=== PATIENT | male | born 1965 ===

== ENCOUNTER 2018-05-02 12:57 | Observation (INO) | payer OTHER ==
[2018-05-02] MEDS ORDERED: DiphenhydrAMINE 50 mg/ml Inj IVP STA (14:28)
--- NOTE | 2018-05-02 14:29 | C.PDOC ---
History Of Present Illness 52 y/o male presents to ED sent by Dr. Godinez for evaluation of headache, ear pain, chest pressure pain, tingling to lips and vomiting for 4 days. Patient states he went to see Dr. Godinez for symptoms and blood pressure was high, instruc dede to come to ED for further evaluation. Patient denies head trauma, loc, dizziness or any other complaints at this time. Time Seen by Provider: 05/02/18 14:18 Chief Complaint (Nursing): Headache History Per: Patient History/Exam Limitations: no limitations Onset/Duration Of Symptoms: Days Current Symptoms Are (Timing): Still Present Past Medical History Reviewed: Historical Data, Nursing Documentation, Vital Signs Vital Signs: Last Vital Signs Temp 97.7 F 05/02/18 13:05 Pulse 58 L 05/02/18 14:44 Resp 18 05/02/18 13:05 BP 120/86 05/02/18 14:44 Pulse Ox 95 05/02/18 14:36 - Medical History PMH: Hypercholesterolemia Surgical History: No Surg Hx Family History: States: No Known Family Hx - Social History Hx Alcohol Use: Yes Hx Substance Use: No - Immunization History Hx Tetanus Toxoid Vaccination: No Hx Influenza Vaccination: No Hx Pneumococcal Vaccination: No Review Of Systems Except As Marked, All Systems Reviewed And Found Negative. ENT: Positive for: Ear Pain Cardiovascular: Positive for: Chest Pain Gastrointestinal: Positive for: Vomiting Neurological: Positive for: Headache Physical Exam - Physical Exam Appears: Non-toxic, No Acute Distress Skin: Warm, Dry, No Rash Head: Atraumatic, Normacephalic Eye(s): bilateral: Normal Inspection Ear(s): Bilateral: Normal Oral Mucosa: Moist Neck: Supple Cardiovascular: Rhythm Regular Respiratory: Normal Breath Sounds, No Rales, No Rhonchi, No Wheezing Gastrointestinal/Abdominal: Soft, No Tenderness, No Guarding, No Rebound Neurological/Psych: Oriented x3, Normal Speech, Normal Cognition ED Course And Treatment - Laboratory Results Result Diagrams: 05/02/18 15:07 05/02/18 15:07 O2 Sat by Pulse Oximetry: 95 (RA) Pulse Ox Interpretation: Normal Medical Decision Making Medical Decision Making: Assessment: CP, Headache Disposition Discussed With DrEsther: Nelson Godinez Jr. Doctor Will See Patient In The: Hospital Counseled Patient/Family Regarding: Studies Performed, Diagnosis - Disposition Disposition: HOSPITALIZED Disposition Time: 15:49 Condition: FAIR Forms: [facility] (Greenlandic) - Clinical Impression Clinical Impression: Chest pain, Headache - Scribe Statement The provider has reviewed the documentation as recorded by the Rufusibamy Carlson All medical record entries made by the Rufusibe were at my direction and personally dictated by me. I have reviewed the chart and agree that the record accurately reflects my personal performance of the history, physical exam, medical decision making, and the department course for this patient. I have also personally directed, reviewed, and agree with the discharge instructions and disposition.
[2018-05-02 15:11] LABS: BASO # 0.1 K/uL (0.0-0.2); BASO % 1.2 % (0.0-2.0); EOS # 0.1 K/uL (0.0-0.7); EOS % 1.8 % (0.0-4.0); HEMOGLOBIN 15.8 g/dL (12.0-18.0); LYMPH # 2.8 K/uL (1.0-4.3); LYMPH % 56.9 % (20.0-40.0); MEAN CORPUSCULAR HEMOGLOBIN 32.2 pg (27.0-31.0); MEAN PLATELET VOLUME 7.7 fL (7.2-11.7); MONO # 0.3 K/uL (0.0-0.8); MONO % 7.1 % (0.0-10.0); NEUT # 1.6 K/uL (1.8-7.0); NRBC % 0.1 % (0.0-2.0); RBC 4.9 Mil/uL (4.40-5.90); RED CELL DISTRIBUTION WIDTH 12.6 % (11.5-14.5); WHITE BLOOD COUNT 4.9 K/uL (4.8-10.8)
[2018-05-02] MEDS ORDERED: DiphenhydrAMINE 50 mg/ml Inj ONE (15:11)
[2018-05-02 15:27] LABS: ALB/GLOB RATIO 1.3 (1.0-2.1); ALBUMIN 4.4 g/dL (3.5-5.0); ALT/SGPT 44 U/L (21-72); AST/SGOT 38 U/L (17-59); BLOOD UREA NITROGEN 17 mg/dL (9-20); CALCIUM 10.2 mg/dl (8.6-10.4); GFR NON-AFRICAN AMERICAN > 60; LIPASE 45 U/L (23-300)
[2018-05-02 15:29] LABS: URINE BACTERIA RARE (<OCC); URINE BILIRUBIN NEGATIVE (NEGATIVE); URINE BLOOD NEGATIVE (NEGATIVE); URINE CLARITY Clear (Clear); URINE COLOR Yellow (YELLOW); URINE GLUCOSE (UA) NORMAL (Normal); URINE LEUKOCYTE ESTERASE NEG Leu/uL (Negative); URINE PROTEIN NEGATIVE (NEGATIVE); URINE UROBILINOGEN NORMAL mg/dL (0.2-1.0)
--- NOTE | 2018-05-02 15:33 | RAD ---
Date of service: 05/02/2018 PROCEDURE: CHEST RADIOGRAPH, 1 VIEW HISTORY: SOB COMPARISON: None available. FINDINGS: LUNGS: No consolidation. Tiny granulomas left mid lung zone possible. Comparison with prior chest [id number] if available, recommended. PLEURA: No pneumothorax or pleural fluid seen. CARDIOVASCULAR: Evaluation of heart size limited due to the apical lordotic and portable technique. No patito pulmonary venous congestion appreciated. OSSEOUS STRUCTURES: No significant abnormalities. VISUALIZED UPPER ABDOMEN: Normal. OTHER FINDINGS: None. IMPRESSION: No acute cardiopulmonary pathology appreciated.
--- NOTE | 2018-05-02 15:33 | CT ---
Date of service: 05/02/2018 PROCEDURE: CT HEAD WITHOUT CONTRAST. HISTORY: headache COMPARISON: None available. TECHNIQUE: Axial computed tomography images were obtained through the head/brain without intravenous contrast. Supplemental Coronal and Sagittal projectections created and reviewed. Radiation dose: Total exam DLP = 1175.00 mGy-cm. This CT exam was performed using one or more of the following dose reduction techniques: Automated exposure control, adjustment of the mA and/or kV according to patient size, and/or use of iterative reconstruction technique. FINDINGS: HEMORRHAGE: No intracranial hemorrhage. BRAIN: No mass effect or edema. No atrophy or chronic microvascular ischemic changes. VENTRICLES: Unremarkable. No hydrocephalus. CALVARIUM: Unremarkable. PARANASAL SINUSES: Unremarkable as visualized. No significant inflammatory changes. MASTOID AIR CELLS: Unremarkable as visualized. No inflammatory changes. OTHER FINDINGS: None. IMPRESSION: No acute intracranial abnormalities. No significant findings to account for the clinical presentation.
[2018-05-02 15:38] LABS: B-TYPE NATRIURETIC PEPTIDE 12.6 pg/mL (0-900)
[2018-05-02 15:50] LABS: BARBITURATES, UR NEGATIVE (NEGATIVE); BENZODIAZEPINES, UR NEGATIVE (NEGATIVE); OPIATES, UR NEGATIVE (NEGATIVE); PHENCYCLIDINE, UR NEGATIVE (NEGATIVE)
--- NOTE | 2018-05-02 18:23 | CP.PCM.HP ---
History of Present Illness - History of Present Illness History of Present Illness: Abram Cole PGY-1, H&P for Dr. Godinez CC: headache This is a 52 year old Somali-speaking male with PMH of pre-DM, hypertriglycerid emia, GERD, constipation who was sent to the ED due to hypertensive urgency (SBP 180s in the office). Translation is provided by pt's , Constance, who is at bedside. Pt complains of intermittent frontal and occipital headache for the past 5 days, associated with a dull pressure in the chest. Headache is nonradiating, not associated with visual changes, but he has been feeling dizzy intermittently and had 1 episode of vomiting (containing food) yesterday which was nonbilious nonbloody. Pt states that the chest pain is nonradiating, not pleuritic in nature, but associated with SOB at times which is worse on exertion. Pt endorses numbness and tingling of the tongue today. Pt denies focal weakness, fever, chills, abdominal pain, n/d, leg swelling or pain, GERD symptoms, dysuria, history of similar symptoms. A 12-point ROS was reviewed and is otherwise unremarkable. Pt seen and examined at bedside. Pt is resting comfortably, and denies any symptoms at this time. PMD: Dr. Gretchen Navarro: Dr. Newman PMH: pre-diabetes, hypertriglyceridemia, GERD, constipation PSH: denies Meds: Metformin 500 mg BID, Omeprazole 40 mg daily, ASA 81 mg PO daily, Fenofibrate 160 mg PO daily Allx:None FHx: IDDM in mother. Father diagnosed, and , from stomach cancer at age 78. No other family history of cancers. Social Hx: Born in [place] (immigrated about 20 years ago), Pt works in [employer]. (+) etoh socially, (+) smoking 1 cig per day for the past few years, (- ) illicit drug use. Present on Admission - Present on Admission Any Indicators Present on Admission: No Review of Systems - Review of Systems All systems: reviewed and no additional remarkable complaints except (as per HPI) Past Patient History - Past Medical History & Family History Past Medical History?: No - Past Social History Smoking Status: Light Smoker < 10 Cigarettes Daily - CARDIAC Hx Hypercholesterolemia: Yes - ENDOCRINE/METABOLIC Hx Diabetes Mellitus Type 2: Yes - PSYCHIATRIC Hx Substance Use: No - SURGICAL HISTORY Hx Surgeries: No - ANESTHESIA Hx Anesthesia: No Meds Allergies/Adverse Reactions: Allergies Allergy/AdvReac Type Severity Reaction Status Date / Time No Known Allergies Allergy Verified 09/06/16 10:32 Physical Exam - Constitutional Appears: Non-toxic, No Acute Distress - Head Exam Head Exam: ATRAUMATIC, NORMAL INSPECTION - Eye Exam Eye Exam: EOMI, Normal appearance - ENT Exam ENT Exam: Mucous Membranes Moist - Neck Exam Neck exam: Positive for: Normal Inspection - Respiratory Exam Respiratory Exam: Rales (scant rales at the bases bilaterally), NORMAL BREATHING PATTERN. absent: Rhonchi, Wheezes, Respiratory Distress - Cardiovascular Exam Cardiovascular Exam: Bradycardia, +S1, +S2 - GI/Abdominal Exam GI & Abdominal Exam: Distended, Normal Bowel Sounds, Soft. absent: Firm, Guarding, Hernia, Rebound, Rigid - Extremities Exam Extremities exam: Positive for: normal capillary refill, normal inspection, pedal pulses present. Negative for: calf tenderness, pedal edema, tenderness - Back Exam Back exam: NORMAL INSPECTION - Neurological Exam Neurological exam: Alert, CN II-XII Intact, Oriented x3 Additional comments: (+) 5/5 strength in bilateral upper and lower extremities - Psychiatric Exam Psychiatric exam: Normal Affect, Normal Mood - Skin Skin Exam: Dry, Normal Color, Warm Results - Vital Signs Recent Vital Signs: Last Vital Signs Temp 98.1 F 05/02/18 18:06 Pulse 62 05/02/18 18:06 Resp 18 05/02/18 18:06 BP 127/80 05/02/18 18:06 Pulse Ox 95 05/02/18 18:06 - Labs Result Diagrams: 05/02/18 15:07 05/02/18 15:07 Labs: Laboratory Results - last 24 hr 05/02/18 05/02/18 05/02/18 13:03 15:07 15:07 WBC 4.9 RBC 4.90 Hgb 15.8 Hct 45.0 MCV 92.0 MCH 32.2 H MCHC 35.0 RDW 12.6 Plt Count 287 MPV 7.7 Neut % (Auto) 33.0 L Lymph % (Auto) 56.9 H [place] % (Auto) 7.1 Eos % (Auto) 1.8 Baso % (Auto) 1.2 Neut # (Auto) 1.6 L Lymph # (Auto) 2.8 [place] # (Auto) 0.3 Eos # (Auto) 0.1 Baso # (Auto) 0.1 Sodium 140 Potassium 4.3 Chloride 101 Carbon Dioxide 28 Anion Gap 15 BUN 17 Creatinine 0.8 Est GFR ( Amer) > 60 Est GFR (Non-Af Amer) > 60 POC Glucose (mg/dL) 93 Random Glucose 101 Calcium 10.2 Magnesium 2.0 Total Bilirubin 0.6 AST 38 ALT 44 Alkaline Phosphatase 48 Troponin I < 0.0120 NT-Pro-B Natriuret Pep 12.6 Total Protein 7.8 Albumin 4.4 Globulin 3.4 Albumin/Globulin Ratio 1.3 Lipase 45 TSH 3rd Generation 1.59 Urine Color Urine Clarity Urine pH Ur Specific [place] Urine Protein Urine Glucose (UA) Urine Ketones Urine Blood Urine Nitrate Urine Bilirubin Urine Urobilinogen Ur Leukocyte Esterase Urine WBC (Auto) Urine RBC (Auto) Urine Bacteria Urine Opiates Screen Urine Methadone Screen Ur Barbiturates Screen Ur Phencyclidine Scrn Ur Amphetamines Screen U Benzodiazepines Scrn U Oth Cocaine Metabols U Cannabinoids Screen 05/02/18 05/02/18 15:23 15:23 WBC RBC Hgb Hct MCV MCH MCHC RDW Plt Count MPV Neut % (Auto) Lymph % (Auto) [place] % (Auto) Eos % (Auto) Baso % (Auto) Neut # (Auto) Lymph # (Auto) [place] # (Auto) Eos # (Auto) Baso # (Auto) Sodium Potassium Chloride Carbon Dioxide Anion Gap BUN Creatinine Est GFR ( Amer) Est GFR (Non-Af Amer) POC Glucose (mg/dL) Random Glucose Calcium Magnesium Total Bilirubin AST ALT Alkaline Phosphatase Troponin I NT-Pro-B Natriuret Pep Total Protein Albumin Globulin Albumin/Globulin Ratio Lipase TSH 3rd Generation Urine Color Yellow Urine Clarity Clear Urine pH 6.0 Ur Specific [place] 1.028 Urine Protein Negative Urine Glucose (UA) Normal Urine Ketones Negative Urine Blood Negative Urine Nitrate Negative Urine Bilirubin Negative Urine Urobilinogen Normal Ur Leukocyte Esterase Neg Urine WBC (Auto) 1 Urine RBC (Auto) 4 H Urine Bacteria Rare Urine Opiates Screen Negative Urine Methadone Screen Negative Ur Barbiturates Screen Negative Ur Phencyclidine Scrn Negative Ur Amphetamines Screen Negative U Benzodiazepines Scrn Negative U Oth Cocaine Metabols Negative U Cannabinoids Screen Negative Assessment & Plan - Assessment and Plan (Free Text) Assessment: This is a 52 year old Somali-speaking male with PMH of pre-DM, hypertriglyceridemia, GERD, constipation who presents with intermittent headache, chest pain and shortness of breath for the past 5 days. Plan: Atypical chest pain, r/o ACS - pt has multiple risk factors for cardiovascular disease; smoking, hypertriglyceridemia, obesity, pre-diabetes - EKG shows SB at 56 - troponin x 1 is negative; will obtain PATTY panel x2 q6h - BNP was wnl on admission - CXR was read as no acute cardiopulmonary pathology - continue home ASA 81 mg PO daily - O2 via NC prn - f/u echocardiogram - Cardiology, Dr. Miranda, consulted, recs appreciated Headache; likely due to hypertension - Head CT was read as no acute intracranial abnormalities - pt is currently symptomatic and hypertension has not been noted during this admission - will hold off on BP medications at this time - Tylenol 650 mg PO Q6h PRN headache Hx of hypertriglyceridemia - Fenofibrate 145 mg PO QPM Pre-diabetes - will hold home metformin, in anticipation of possible intervention from cardiology Hx of GERD - protonix 40 mg PO daily PPD/Diet - protonix for GI, SCDs and Heparin 5,000 units Q12 for VTE - HHD All medical management as per Dr. Gretchen Cole PGY-1
--- NOTE | 2018-05-02 20:27 | CP.PCM.CON ---
History of Present Illness - History of Present Illness History of Present Illness: I was asked to evaluate patient by Dr Godinez. Patient is a 52 year old male with hypertiglyceridemia who presents with headache and hypertensive urgency. The patient states one week ago he developed headache and assocaited pressure in his chest. He states symptoms occurred at rest, along with associated dsypnea. The patient states he was found to have a systolic pressure greater than 180. He was admitted for further management. Review of Systems - Constitutional Constitutional: absent: As Per HPI, Anorexia, Chills, Daytime Sleepiness, Excessive Sweating, Fatigue, Fever, Frequent Falls, Headache, Increased Appetite, Lethargy, Malaise, Night Sweats, Snoring, Sleep Apnea, Weight Gain, Weight Loss, Weakness, Other - EENT Eyes: absent: As Per HPI, Blind Spots, Blurred Vision, Change in Vision, Decreased Night Vision, Diplopia, Discharge, Dry Eye, Exophthalmos, Floaters, Irritation, Itchy Eyes, Loss of Peripheral Vision, Pain, Photophobia, Requires Corrective Lenses, Sees Flashes, Spots in Vision, Tunnel Vision, Other Visual Disturbances, Loss of Vision, Other Ears: absent: As Per HPI, Decreased Hearing, Ear Discharge, Ear Pain, Tinnitus, Abnormal Hearing, Disequilibrium, Dizziness, Other Nose/Mouth/Throat: absent: As Per HPI, Epistaxis, Nasal Congestion, Nasal D ischarge, Nasal Obstruction, Nasal Trauma, Nose Pain, Post Nasal Drip, Sinus Pain, Sinus Pressure, Bleeding Gums, Change in Voice, Dental Pain, Dry Mouth, Dysphagia, Halitosis, Hoarsness, Lip Swelling, Mouth Lesions, Mouth Pain, Odynophagia, Sore Throat, Throat Swelling, Tongue Swelling, Facial Pain, Neck Pain, Neck Mass, Other - Cardiovascular Cardiovascular: Chest Pain - Respiratory Respiratory: absent: As Per HPI, Cough, Dyspnea, Hemoptysis, Dyspnea on Exertion, Wheezing, Snoring, Stridor, Pain on Inspiration, Chest Congestion, Excessive Mucous Production, Change in Mucous Color, Pain with Coughing, Other - Gastrointestinal Gastrointestinal: absent: As Per HPI, Abdominal Pain, Belching, Bloating, Change in Bowel Habits, Change in Stool Character, Coffee Ground Emesis, Constipation, Cramping, Diarrhea, Dyspepsia, Dysphagia, Early Satiety, Excessive Flatus, Fecal Incontinence, Heartburn, Hematemesis, Hematochezia, Loose Stools, Melena, Nausea, Odynophagia, Temesmus, Vomiting, Other - Genitourinary Genitourinary: absent: As Per HPI, Change in Urinary Stream, Difficulty Urinating, Dysuria, Flank Pain, Hematuria, Pyuria, Nocturia, Urinary Incontinence, Urinary Frequency, Urinary Hesitance, Urinary Urgency, Voiding Freq/Small Amts, Freq UTI, Hx Renal/Bladder Calculi, Hx /Renal Surgery, Bladder Distension, Other - Musculoskeletal Musculoskeletal: absent: As Per HPI, Abnormal Gait, Arthralgias, Atrophy, Back Pain, Deformity, Joint Swelling, Limited Range of Motion, Loss of Height, Muscle Cramps, Muscle Weakness, Myalgias, Neck Pain, Numbness, Radiating Pain into Limb, Stiffness, Tingling, Other - Integumentary Integumentary: absent: As Per HPI, Acne, Alopecia, Bleeding Lesions, Change in Hair, Change in Nails, Change in Pigmentation, Changing Lesions, Dry Skin, Erythema, Furuncle, Hirsutism, Lesions, New Lesions, Non-Healing Lesions, Panfilo tosensitivity, Pruritus, Rash, Skin Pain, Skin Ulcer, Sores, Striae, Swelling, Unusual Bruising, Wounds, Jaundice, Other - Neurological Neurological: absent: As Per HPI, Abnormal Gait, Abnormal Hearing, Abnormal Movements, Abnormal Speech, Behavioral Changes, Burning Sensations, Confusion, Convulsions, Disequilibrium, Dizziness, Numbness, Focal Weakness, Frequent Falls, Headaches, Lack of Coordination, Loss of Vision, Memory Loss, Paresthesias, Radicular Pain, Restless Legs, Sensory Deficit, Syncope, Tingling, Tremor, Vertigo, Weakness, Other Visual Disturbances, Other - Psychiatric Psychiatric: absent: As Per HPI, Abnormal Sleep Pattern, Anhedonia, Anxiety, Auditory Hallucinations, Behavioral Changes, Change in Appetite, Change in Libido, Confusion, Depression, Difficulty Concentrating, Hallucinations, Homicid al Ideation, Hopelessness, Irritability, Memory Loss, Mood Swings, Panic Attacks, Paranoia, Suicidal Ideation, Visual Hallucinations, Tactile Hallucinations, Other - Endocrine Endocrine: absent: As Per HPI, Change in Body Appearance, Change in Libido, Cold Intolorance, Deepening of Voice, Excessive Sweating, Fatigue, Flushing, Heat Intolorance, Increase in Ring/Shoe/Hat Size, Palpitations, Polydipsia, Polyphagia, Polyuria, Other - Hematologic/Lymphatic Hematologic: absent: As Per HPI, Easy Bleeding, Easy Bruising, Lymphadenopathy, Other Past Patient History - Past Medical History & Family History Past Medical History?: No - Past Social History Smoking Status: Light Smoker < 10 Cigarettes Daily - CARDIAC Hx Hypercholesterolemia: Yes - ENDOCRINE/METABOLIC Hx Diabetes Mellitus Type 2: Yes - PSYCHIATRIC Hx Substance Use: No - SURGICAL HISTORY Hx Surgeries: No - ANESTHESIA Hx Anesthesia: No Meds Allergies/Adverse Reactions: Allergies Allergy/AdvReac Type Severity Reaction Status Date / Time No Known Allergies Allergy Verified 09/06/16 10:32 - Medications Medications: Current Medications Acetaminophen (Tylenol 325mg Tab) 650 mg PO Q6 PRN PRN Reason: Headache Aspirin (Ecotrin) 81 mg PO DAILY KEVIN Fenofibrate (Tricor) 145 mg PO QPM KEVIN Last Admin: 05/02/18 18:56 Dose: 145 mg Heparin Sodium (Porcine) (Heparin) 5,000 units SC Q12 KEVIN Pantoprazole Sodium (Protonix Ec Tab) 40 mg PO DAILY [facility] Pneumococcal Polyvalent Vaccine (Pneumovax 23 Vaccine) 0.5 ml IM .ONCE ONE Stop: 05/03/18 10:01 Physical Exam - Constitutional Appears: Non-toxic - Head Exam Head Exam: NORMAL INSPECTION - Eye Exam Eye Exam: Normal appearance - ENT Exam ENT Exam: Mucous Membranes Moist - Neck Exam Neck exam: Positive for: Full Rom - Respiratory Exam Respiratory Exam: NORMAL BREATHING PATTERN - Cardiovascular Exam Cardiovascular Exam: REGULAR RHYTHM - GI/Abdominal Exam GI & Abdominal Exam: Normal Bowel Sounds - Rectal Exam Rectal Exam: Deferred - Extremities Exam Extremities exam: Positive for: pedal edema - Back Exam Back exam: NORMAL INSPECTION - Neurological Exam Neurological exam: Alert, Oriented x3 - Psychiatric Exam Psychiatric exam: Normal Affect - Skin Skin Exam: Normal Color Results - Vital Signs Recent Vital Signs: Last Vital Signs Temp 98.7 F 05/02/18 19:50 Pulse 62 05/02/18 18:06 Resp 18 05/02/18 18:06 BP 127/80 05/02/18 18:06 Pulse Ox 95 05/02/18 18:06 - Labs Result Diagrams: 05/02/18 15:07 05/02/18 15:07 Labs: Laboratory Results - last 24 hr 05/02/18 05/02/18 05/02/18 13:03 15:07 15:07 WBC 4.9 RBC 4.90 Hgb 15.8 Hct 45.0 MCV 92.0 MCH 32.2 H MCHC 35.0 RDW 12.6 Plt Count 287 MPV 7.7 Neut % (Auto) 33.0 L Lymph % (Auto) 56.9 H [place] % (Auto) 7.1 Eos % (Auto) 1.8 Baso % (Auto) 1.2 Neut # (Auto) 1.6 L Lymph # (Auto) 2.8 [place] # (Auto) 0.3 Eos # (Auto) 0.1 Baso # (Auto) 0.1 Sodium 140 Potassium 4.3 Chloride 101 Carbon Dioxide 28 Anion Gap 15 BUN 17 Creatinine 0.8 Est GFR ( Amer) > 60 Est GFR (Non-Af Amer) > 60 POC Glucose (mg/dL) 93 Random Glucose 101 Calcium 10.2 Magnesium 2.0 Total Bilirubin 0.6 AST 38 ALT 44 Alkaline Phosphatase 48 Troponin I < 0.0120 NT-Pro-B Natriuret Pep 12.6 Total Protein 7.8 Albumin 4.4 Globulin 3.4 Albumin/Globulin Ratio 1.3 Lipase 45 TSH 3rd Generation 1.59 Urine Color Urine Clarity Urine pH Ur Specific [place] Urine Protein Urine Glucose (UA) Urine Ketones Urine Blood Urine Nitrate Urine Bilirubin Urine Urobilinogen Ur Leukocyte Esterase Urine WBC (Auto) Urine RBC (Auto) Urine Bacteria Urine Opiates Screen Urine Methadone Screen Ur Barbiturates Screen Ur Phencyclidine Scrn Ur Amphetamines Screen U Benzodiazepines Scrn U Oth Cocaine Metabols U Cannabinoids Screen 05/02/18 05/02/18 15:23 15:23 WBC RBC Hgb Hct MCV MCH MCHC RDW Plt Count MPV Neut % (Auto) Lymph % (Auto) [place] % (Auto) Eos % (Auto) Baso % (Auto) Neut # (Auto) Lymph # (Auto) [place] # (Auto) Eos # (Auto) Baso # (Auto) Sodium Potassium Chloride Carbon Dioxide Anion Gap BUN Creatinine Est GFR ( Amer) Est GFR (Non-Af Amer) POC Glucose (mg/dL) Random Glucose Calcium Magnesium Total Bilirubin AST ALT Alkaline Phosphatase Troponin I NT-Pro-B Natriuret Pep Total Protein Albumin Globulin Albumin/Globulin Ratio Lipase TSH 3rd Generation Urine Color Yellow Urine Clarity Clear Urine pH 6.0 Ur Specific [place] 1.028 Urine Protein Negative Urine Glucose (UA) Normal Urine Ketones Negative Urine Blood Negative Urine Nitrate Negative Urine Bilirubin Negative Urine Urobilinogen Normal Ur Leukocyte Esterase Neg Urine WBC (Auto) 1 Urine RBC (Auto) 4 H Urine Bacteria Rare Urine Opiates Screen Negative Urine Methadone Screen Negative Ur Barbiturates Screen Negative Ur Phencyclidine Scrn Negative Ur Amphetamines Screen Negative U Benzodiazepines Scrn Negative U Oth Cocaine Metabols Negative U Cannabinoids Screen Negative - EKG Data EKG Interpreted by: Myself EKG shows normal: Sinus rhythm Assessment & Plan (1) Chest pain Assessment and Plan: patient has no active chest pain. recommend cardaic enzymes x 3. If negative patient can be discharged home and will schedule outpatient stress test Status: Acute (2) HTN (hypertension) Assessment and Plan: blood pressure control Status: Acute
[2018-05-02 21:22] LABS: CK-MB 5.04 ng/mL (0.0-3.38)
[2018-05-03 00:44] VITALS: RESP 20
[2018-05-03 03:35] LABS: EOS # 0.1 K/uL (0.0-0.7); EOS % 2.6 % (0.0-4.0); HEMOGLOBIN 15.2 g/dL (12.0-18.0); LYMPH # 3.1 K/uL (1.0-4.3); LYMPH % 66.6 % (20.0-40.0); MEAN CELL VOLUME 91.8 fL (80.0-94.0); MEAN CORPUSCULAR HEMOGLOBIN 32.5 pg (27.0-31.0); MEAN CORPUSCULAR HGB CONC 35.4 g/dL (33.0-37.0); MEAN PLATELET VOLUME 8.1 fL (7.2-11.7); MONO # 0.3 K/uL (0.0-0.8); MONO % 7.4 % (0.0-10.0); NEUT % 22.4 % (50.0-75.0); NRBC % 0.1 % (0.0-2.0); RBC 4.68 Mil/uL (4.40-5.90); RED CELL DISTRIBUTION WIDTH 12.5 % (11.5-14.5); WHITE BLOOD COUNT 4.6 K/uL (4.8-10.8)
[2018-05-03 03:58] LABS: ALB/GLOB RATIO 1.4 (1.0-2.1); ALT/SGPT 41 U/L (21-72); AST/SGOT 32 U/L (17-59); BLOOD UREA NITROGEN 19 mg/dL (9-20); CALCIUM 9.6 mg/dl (8.6-10.4); GFR NON-AFRICAN AMERICAN > 60
[2018-05-03 04:09] LABS: CK-MB 4.99 ng/mL (0.0-3.38)
--- NOTE | 2018-05-03 07:25 | CP.PCM.PN ---
Subjective - Date & Time of Evaluation Date of Evaluation: 05/03/18 Time of Evaluation: 07:25 - Subjective Subjective: Abram Cole PGY-1, Medicine progress note for Dr. Godinez Objective - Vital Signs/Intake and Output Vital Signs (last 24 hours): Temp Pulse Resp BP Pulse Ox 97.7 F 59 L 20 128/70 96 05/03/18 00:00 05/03/18 03:05 05/03/18 00:00 05/03/18 00:00 05/03/18 00:00 - Medications Medications: Current Medications Acetaminophen (Tylenol 325mg Tab) 650 mg PO Q6 PRN PRN Reason: Headache Aspirin (Ecotrin) 81 mg PO DAILY KEVIN Fenofibrate (Tricor) 145 mg PO QPM [facility] Last Admin: 05/02/18 18:56 Dose: 145 mg Heparin Sodium (Porcine) (Heparin) 5,000 units SC Q12 [facility] Last Admin: 05/02/18 21:18 Dose: 5,000 units Pantoprazole Sodium (Protonix Ec Tab) 40 mg PO DAILY [facility] Pneumococcal Polyvalent Vaccine (Pneumovax 23 Vaccine) 0.5 ml IM .ONCE ONE Stop: 05/03/18 10:01 - Labs Labs: 05/03/18 03:30 05/03/18 03:30 APTT 36 SECONDS (21-34) H 05/03/18 03:30
[2018-05-03 08:09] VITALS: PULSE 63
[2018-05-03] MEDS ORDERED: Pneumococcal 23-Valent Vaccine IM ONE (10:00)
[2018-05-03] MEDS ORDERED: Pantoprazole 40 mg EC Tab PO SCH (10:00)
--- NOTE | 2018-05-03 11:51 | CARD ---
APPROVED REPORT Date of service: 05/02/2018 EKG Measurement Heart [id number] <Conclusion> Sinus bradycardia Inferior infarct, age undetermined Abnormal ECG
--- NOTE | 2018-05-03 12:30 | CARD ---
APPROVED REPORT Date of service: 05/03/2018 EXAM: Two-dimensional and M-mode echocardiogram with Doppler and color Doppler. Other Information Quality : GoodRhythm : INDICATION Chest Pain RISK FACTORS Hypertension Hyperlipidemia Diabetes 2D DIMENSIONS IVSd1.8 (0.7-1.1cm)LVDd4.6 (3.9-5.9cm) PWd1.6 (0.7-1.1cm)LVDs2.8 (2.5-4.0cm) FS (%) 39.7 %LVEF (%)70.3 (>50%) M-Mode DIMENSIONS RVDd1.25 (2.1-3.2cm)Left Atrium (MM)4.09 (2.5-4.0cm) IVSd1.66 (0.7-1.1cm)Aortic Root3.44 (2.2-3.7cm) LVDd4.83 (4.0-5.6cm)Aortic Cusp Exc.2.59 (1.5-2.0cm) PWd1.48 (0.7-1.1cm)FS (%) 43 % LVDs2.77 (2.0-3.8cm)TAPSE14.01 cm LVEF (%)74 (>50%) Mitral Valve MV E Lqjbjcfv72.7cm/sMV A Czdcehwd28.2cm/sE/A ratio1.3 TDI E/Lateral E'0.0E/Medial E'0.0 Tricuspid Valve TR Peak Rjsrzojw222yf/sTR Peak Gr.[id number] LEFT VENTRICLE The left ventricle is normal size. There is mild concentric left ventricular hypertrophy. The left ventricular function is normal. The left ventricular ejection fraction is within the normal range. No regional wall motion abnormalities noted. The left ventricular diastolic function is normal. No left ventricle thrombus noted on this study. There is no ventricular septal defect visualized. There is no left ventricular aneurysm. There is no mass noted in the left ventricle. RIGHT VENTRICLE The right ventricle is normal size. There is normal right ventricular wall thickness. The right ventricular systolic function is normal. ATRIA The left atrium size is normal. The right atrium size is normal. The interatrial septum is intact with no evidence for an atrial septal defect. AORTIC VALVE The aortic valve is normal in structure and function. No aortic regurgitation is present. There is no aortic valvular stenosis. There is no aortic valvular vegetation. MITRAL VALVE The mitral valve is normal in structure and function. There is no evidence of mitral valve prolapse. There is no mitral valve stenosis. There is no mitral valve regurgitation noted. TRICUSPID VALVE The tricuspid valve is normal in structure and function. There is mild tricuspid regurgitation. Right ventricular systolic pressure is estimated at less than 30 mmHg. There is no tricuspid valve prolapse or vegetation. There is no tricuspid valve stenosis. PULMONIC VALVE The pulmonary valve is normal in structure and function. There is no pulmonic valvular regurgitation. There is no pulmonic valvular stenosis. GREAT VESSELS The aortic root is normal in size. The ascending aorta is normal in size. The pulmonary artery is normal. The IVC is normal in size and collapses >50% with inspiration. PERICARDIAL EFFUSION The pericardium appears normal. There is no pleural effusion. <Conclusion> There is mild concentric left ventricular hypertrophy. The left ventricular function is normal. The left ventricular ejection fraction is within the normal range. No regional wall motion abnormalities noted.
--- NOTE | 2018-05-03 13:13 | CP.PCM.DIS ---
Provider - Provider Date of Admission: 05/02/18 15:46 Attending physician: Nelson Godinez Jr, MD Time Spent in preparation of Discharge (in minutes): 35 Hospital Course - Lab Results Lab Results: Most Recent Lab Values WBC 4.6 K/uL (4.8-10.8) L 05/03/18 03:30 RBC 4.68 Mil/uL (4.40-5.90) 05/03/18 03:30 Hgb 15.2 g/dL (12.0-18.0) 05/03/18 03:30 Hct 43.0 % (35.0-51.0) 05/03/18 03:30 MCV 91.8 fL (80.0-94.0) 05/03/18 03:30 MCH 32.5 pg (27.0-31.0) H 05/03/18 03:30 MCHC 35.4 g/dL (33.0-37.0) 05/03/18 03:30 RDW 12.5 % (11.5-14.5) 05/03/18 03:30 Plt Count 263 K/uL (130-400) 05/03/18 03:30 MPV 8.1 fL (7.2-11.7) 05/03/18 03:30 Neut % (Auto) 22.4 % (50.0-75.0) L 05/03/18 03:30 Lymph % (Auto) 66.6 % (20.0-40.0) H 05/03/18 03:30 [place] % (Auto) 7.4 % (0.0-10.0) 05/03/18 03:30 Eos % (Auto) 2.6 % (0.0-4.0) 05/03/18 03:30 Baso % (Auto) 1.0 % (0.0-2.0) 05/03/18 03:30 Neut # (Auto) 1.0 K/uL (1.8-7.0) L 05/03/18 03:30 Lymph # (Auto) 3.1 K/uL (1.0-4.3) 05/03/18 03:30 Schley # (Auto) 0.3 K/uL (0.0-0.8) 05/03/18 03:30 Eos # (Auto) 0.1 K/uL (0.0-0.7) 05/03/18 03:30 Baso # (Auto) 0.0 K/uL (0.0-0.2) 05/03/18 03:30 APTT 36 SECONDS (21-34) H 05/03/18 03:30 Sodium 140 mmol/L (132-148) 05/03/18 03:30 Potassium 4.0 mmol/L (3.6-5.2) 05/03/18 03:30 Chloride 105 mmol/L (98-107) 05/03/18 03:30 Carbon Dioxide 25 mmol/L (22-30) 05/03/18 03:30 Anion Gap 14 (10-20) 05/03/18 03:30 BUN 19 mg/dL (9-20) 05/03/18 03:30 Creatinine 0.9 mg/dL (0.8-1.5) 05/03/18 03:30 Est GFR ( Amer) > 60 05/03/18 03:30 Est GFR (Non-Af Amer) > 60 05/03/18 03:30 POC Glucose (mg/dL) 103 mg/dL (65-110) 05/02/18 21:09 Random Glucose 112 mg/dL (75-110) H 05/03/18 03:30 Calcium 9.6 mg/dl (8.6-10.4) 05/03/18 03:30 Phosphorus 3.9 mg/dL (2.5-4.5) 05/03/18 03:30 Magnesium 2.1 mg/dL (1.6-2.3) 05/03/18 03:30 Total Bilirubin 0.4 mg/dL (0.2-1.3) 05/03/18 03:30 AST 32 U/L (17-59) 05/03/18 03:30 ALT 41 U/L (21-72) 05/03/18 03:30 Alkaline Phosphatase 43 U/L (38-126) 05/03/18 03:30 Total Creatine Kinase 297 U/L (55-170) H 05/03/18 03:30 CK-MB (Mass) 4.99 ng/mL (0.0-3.38) H 05/03/18 03:30 Troponin I < 0.0120 ng/mL (0.00-0.120) 05/03/18 03:30 NT-Pro-B Natriuret Pep 12.6 pg/mL (0-900) 05/02/18 15:07 Total Protein 7.0 g/dL (6.3-8.3) 05/03/18 03:30 Albumin 4.0 g/dL (3.5-5.0) 05/03/18 03:30 Globulin 3.0 gm/dL (2.2-3.9) 05/03/18 03:30 Albumin/Globulin Ratio 1.4 (1.0-2.1) 05/03/18 03:30 Lipase 45 U/L (23-300) 05/02/18 15:07 TSH 3rd Generation 1.59 mIU/L (0.46-4.68) 05/02/18 15:07 Urine Color Yellow (YELLOW) 05/02/18 15:23 Urine Clarity Clear (Clear) 05/02/18 15:23 Urine pH 6.0 (5.0-8.0) 05/02/18 15:23 Ur Specific [place] 1.028 (1.003-1.030) 05/02/18 15:23 Urine Protein Negative mg/dL (NEGATIVE) 05/02/18 15:23 Urine Glucose (UA) Normal mg/dL (Normal) 05/02/18 15:23 Urine Ketones Negative mg/dL (NEGATIVE) 05/02/18 15:23 Urine Blood Negative (NEGATIVE) 05/02/18 15:23 Urine Nitrate Negative (NEGATIVE) 05/02/18 15:23 Urine Bilirubin Negative (NEGATIVE) 05/02/18 15:23 Urine Urobilinogen Normal mg/dL (0.2-1.0) 05/02/18 15:23 Ur Leukocyte Esterase Neg Yandy/uL (Negative) 05/02/18 15:23 Urine WBC (Auto) 1 /hpf (0-5) 05/02/18 15:23 Urine RBC (Auto) 4 /hpf (0-3) H 05/02/18 15:23 Urine Bacteria Rare (<OCC) 05/02/18 15:23 Urine Opiates Screen Negative (NEGATIVE) 05/02/18 15:23 Urine Methadone Screen Negative (NEGATIVE) 05/02/18 15:23 Ur Barbiturates Screen Negative (NEGATIVE) 05/02/18 15:23 Ur Phencyclidine Scrn Negative (NEGATIVE) 05/02/18 15:23 Ur Amphetamines Screen Negative (NEGATIVE) 05/02/18 15:23 U Benzodiazepines Scrn Negative (NEGATIVE) 05/02/18 15:23 U Oth Cocaine Metabols Negative (NEGATIVE) 05/02/18 15:23 U Cannabinoids Screen Negative (NEGATIVE) 05/02/18 15:23 Discharge Exam - Head Exam Head Exam: NORMAL INSPECTION Discharge Plan - Follow Up Plan Condition: FAIR Disposition: HOME/ ROUTINE
[2018-05-03 16:05] VITALS: BP 135/95; TEMP 98.6; O2SAT 95
== END 2018-05-03 18:03 | disposition home or self-care (01) ==
LOC: C.ER 12:57 → C.9E 15:46 → C.5S 17:27
PROVIDERS: ADMIT Internal Medicine; ATTEND Internal Medicine
DX: R07.89 Other chest pain (principal); R51 Headache
CPT/HCPCS: 36415; 70450; 71045; 80053; 80324; 80345; 80346; 80349; 80353; 80358; 80361; 81001; 82948; 83690; 83735; 83880; 83992; 84100; 84443; 84484; 85025; 85730; 93005; 93306; 96374; 99285; G0378; J1200; J1644; J2765